=== PATIENT | female | born 1975 | race African-American/Black ===

== ENCOUNTER 2018-03-20 22:05 | Emergency (ER) | payer SELFPAY ==
[~2018-03-20] VITALS: Ht 157.5 cm; Wt 66.2 kg
[2018-03-20 22:10] VITALS: BP 128/62
--- NOTE | 2018-03-20 22:38 | PHYS DOC ---
Past Medical History Past Medical History: No Pertinent History Past Surgical History: No Surgical History Alcohol Use: Occasionally Drug Use: Marijuana Adult General Chief Complaint Chief Complaint: SUBSTANCE ABUSE HPI HPI Patient is a 43 year old F who presents with rapid heart rate and sob after smoking marijuana. She is feeling much better now. Review of Systems Review of Systems Constitutional: Denies fever or chills [] Respiratory: Shortness of breath Cardiovascular: Denies chest pain. Reports palpitations GI: Denies abdominal pain, nausea, vomiting Integument: Denies rash or skin lesions [] Neurologic: Denies headache, focal weakness or sensory changes [] All other systems were reviewed and found to be within normal limits, except as documented in this note. Allergies Allergies Allergies Coded Allergies Type Severity Reaction Last Updated Verified No Known Drug Allergies 03/20/18 No Physical Exam Physical Exam Constitutional: Well developed, well nourished, no acute distress, non-toxic appearance. [] HENT: Normocephalic, atraumatic Eyes: PERRLA, EOMI, conjunctiva normal, no discharge. [] Neck: Normal range of motion, no tenderness, supple, no stridor. [] Cardiovascular:Heart rate mildly tachycardic Lungs & Thorax: Bilateral breath sounds clear to auscultation [] Abdomen: Bowel sounds normal, soft, no tenderness Skin: Warm, dry, no erythema, no rash. [] Neurologic: Alert and oriented X 3, normal motor function, normal sensory function, no focal deficits noted. [] Psychologic: Affect normal, judgement normal, mood normal. [] Current Patient Data Vital Signs Vital Signs Date Time Temp Pulse Resp B/P (MAP) Pulse Ox O2 Delivery O2 Flow Rate FiO2 03/20/18 22:10 98.2 120 16 128/62 (84) 97 Room Air 98.2 EKG EKG [] Radiology/Procedures Radiology/Procedures [] Course & Med Decision Making Course & Med Decision Making Pertinent Labs and Imaging studies reviewed. (See chart for details) Plan: home to rest, f/u with PCP, avoid drug use, return precautions reviewed Pras[place]on Disclaimer Dragon Disclaimer This electronic medical record was generated, in whole or in part, using a voice recognition dictation system. Departure Departure Impression: Primary Impression: Marijuana use Disposition: HOME, SELF-CARE Condition: GOOD Referrals: NO PCP (PCP) Patient Instructions: Marijuana Abuse-Brief LEONA FOX GLASS SAGGER Mar 20, 2018 22:38
== END 2018-03-20 23:49 | disposition home or self-care (01) ==
LOC: ER 22:05
DX: F12.10 Cannabis abuse, uncomplicated (principal); R00.0 Tachycardia, unspecified; R06.02 Shortness of breath
CPT/HCPCS: 99283